=== PATIENT | male | born 1975 | race Caucasian/White ===

== ENCOUNTER → 2020-12-01 | Outpatient (CLI) | payer BC, OTHER ==
[~2020-12-01] MED LIST: CYCL10TA2 PO
[2020-12-01 09:30] LABS: BASOPHILS % (AUTO) 1 % (0-1); EOSINOPHILS % (AUTO) 3 % (1-7); LYMPHOCYTES % (AUTO) 32 % (22-44); MEAN CORPUSCULAR HEMOGLOBIN 34.6 pg (27.5-34.5); MEAN CORPUSCULAR HGB CONC 35.1 g/dL (33.2-36.2); MEAN PLATELET VOLUME 9.2 fL (7.4-10.4); MONOCYTES % (AUTO) 7 % (2-9); NEUTROPHILS % (AUTO) 56 % (42-75); PLATELET COUNT 212 x10^3/uL (130-400); RED BLOOD COUNT 4.71 x10^6/uL (4.38-5.82); RED CELL DISTRIBUTION WIDTH 13.3 % (9.4-14.8)
[2020-12-01 09:42] LABS: ANION GAP 3 mmol/L (5-15); CALCIUM 8.9 mg/dL (8.5-10.1); CHLORIDE 108 mmol/L (98-107); CREATININE 1.09 mg/dL (0.7-1.3)
[2020-12-01 09:46] LABS: INTERNATIONAL NORMALIZED RATIO 1.01 (0.93-1.1); PROTHROMBIN TIME 10.8 Seconds (9.6-11.5)
== END | disposition home or self-care (01) ==
LOC: STAR 08:44
PROVIDERS: ATTEND Neurological Surgery
DX: Z01.818 Encounter for other preprocedural examination (principal); M50.00 Cervical disc disorder with myelopathy, unspecified cervical region; Z20.822 Contact with and (suspected) exposure to COVID-19
CPT/HCPCS: 36415; 71046; 80048; 85025; 85610; 85730; 93005; U0003; U0005

== ENCOUNTER 2020-12-07 06:02 | Day surgery (SDC) | payer BC, OTHER ==
[~2020-12-07] VITALS: Ht 177.8 cm; Wt 85.0 kg
[2020-12-07 06:26] VITALS: BP 124/82
[2020-12-07] MEDS ORDERED: LACTATED RINGERS 1,000 ML IV SCH (06:30)
[2020-12-07] MEDS ORDERED: CHLORHEXIDINE 15 ML UDC PO ONE (06:30)
[2020-12-07] MEDS ORDERED: THROMBIN 20,000 UNIT VIAL TP ONE (06:32)
[2020-12-07] MEDS ORDERED: VANCOMYCIN 1,000 MG ONE (06:32)
[2020-12-07] MEDS ORDERED: BUPIVACAINE/PF 0.5% ONE (06:32)
[2020-12-07] MEDS ORDERED: GENTAMICIN 80 MG/2 ML ONE (06:33)
[2020-12-07] MEDS ORDERED: EPINEPHRINE 1 MG/ML, 1ML ONE (06:33)
[2020-12-07] MEDS ORDERED: FENTANYL PF 250 MCG/5ML ONE (07:07)
[2020-12-07] MEDS ORDERED: MIDAZOLAM 1 MG/ML, 2ML ONE (07:07)
[2020-12-07] MEDS ORDERED: CEFAZOLIN 1,000 MG ONE (07:34)
[2020-12-07] MEDS ORDERED: KETOROLAC 30 MG/1 ML ONE (07:34)
[2020-12-07] MEDS ORDERED: DEXAMETHASONE 4 MG/ML, 5ML ONE (07:34)
[2020-12-07] MEDS ORDERED: ONDANSETRON 2MG/ML, 2ML ONE (07:34)
[2020-12-07] MEDS ORDERED: PROPOFOL 10 MG/ML, 20ML ONE ×3 (07:34→08:33)
[2020-12-07] MEDS ORDERED: ROCURONIUM 10 MG/ML,10ML ONE (07:34)
[2020-12-07] MEDS ORDERED: SUCCINYLCHOLINE 20 MG/ML, 10ML ONE (07:34)
[2020-12-07] MEDS ORDERED: OXYC-302 PO (09:08)
[2020-12-07] MEDS ORDERED: medrol dose pack PO (09:13)
[2020-12-07] MEDS ORDERED: OXYcodone 5 MG/5 ML ORAL.SOL UDC PO PRN (09:30)
[2020-12-07] MEDS ORDERED: METOCLOPRAMIDE 5 MG/ML, 2ML IV PRN (09:30)
[2020-12-07] MEDS ORDERED: KETOROLAC 30 MG/1 ML IV PRN (09:30)
[2020-12-07] MEDS ORDERED: PROMETHAZINE 25 MG/ML, 1ML IV PRN (09:30)
[2020-12-07] MEDS ORDERED: MEPERIDINE/PF 25MG/0.5ML IVPush PRN (09:30)
[2020-12-07] MEDS ORDERED: DIAZEPAM 5 MG/ML, 2ML IV PRN ×2 (09:30)
[2020-12-07] MEDS ORDERED: HYDROmorphone 1 MG/ML, 1ML INJ IV PRN (09:30)
[2020-12-07] MEDS ORDERED: hydrALAzine 20 MG/ML, 1ML IV PRN (09:30)
[2020-12-07] MEDS ORDERED: FENTANYL PF 100 MCG/2ML IV PRN (09:30)
[2020-12-07] MEDS ORDERED: methylPREDNISolone*ACETATE* 80 MG/ML IM ONE (09:30)
[2020-12-07] MEDS ORDERED: ONDANSETRON 2MG/ML, 2ML IVPush PRN (09:30)
[2020-12-07] MEDS ORDERED: ALBUTEROL SULFATE 2.5 MG/3 ML NPPB PRN (09:30)
[2020-12-07] MEDS ORDERED: LABETALOL 5MG/ML, 20ML IV PRN (09:30)
[2020-12-08] MEDS ORDERED: OXYC-302 PO ×2 (12:58)
[2020-12-08] MEDS ORDERED: METH4TAB2 PO (12:59)
== END 2020-12-07 11:30 | disposition home or self-care (01) ==
LOC: OUT 06:02
PROVIDERS: ATTEND Neurological Surgery
DX: M50.122 Cervical disc disorder at C5-C6 level with radiculopathy (principal); M25.78 Osteophyte, vertebrae; Z79.899 Other long term (current) drug therapy; Z82.61 Family history of arthritis; Z80.9 Family history of malignant neoplasm, unspecified
CPT/HCPCS: 22856; 72040; 95938; 95941; C1776; J0171; J0330; J0690; J1040; J1100; J1580; J1885; J2250; J2405; J2704; J3010; J3370; J7120